=== PATIENT | male | born 1965 | race Caucasian/White ===

== ENCOUNTER 2018-09-16 15:59 | Outpatient (CLI) | payer BC ==
--- NOTE | 2018-09-16 17:21 | RAD ---
THREE VIEWS OF THE LUMBOSACRAL SPINE 09/16/18 COMPARISON: None. HISTORY: Numbness in the legs. FINDINGS: Three views of the lumbosacral spine were performed in the lateral position in neutral, flexion, and extension. The vertebral bodies demonstrate normal height and alignment without fracture or subluxation. There i s mild narrowing of the L4-5 intervertebral disc. Alignment is unchanged with flexion and extension. Posterior facet arthrosis is seen in the lower lumbosacral spine. IMPRESSION: Degenerative changes in the lower lumbosacral spine with unchanged alignment with bending. POS: [facility]
== END 2018-09-16 16:00 | disposition home or self-care (01) ==
LOC: TBSIIMAG 15:59
PROVIDERS: ATTEND Neurological Surgery
DX: M43.16 Spondylolisthesis, lumbar region (principal); M47.817 Spondylosis without myelopathy or radiculopathy, lumbosacral region
CPT/HCPCS: 72100